=== PATIENT | male | born 1980 | race Caucasian/White ===

== ENCOUNTER 2020-08-23 15:50 | Emergency (ER) | payer BC ==
[2020-08-23 16:03] VITALS: PULSE 80
[2020-08-23] MEDS ORDERED: XYLOCAINE 2% HCL 20 ML MDV ONE (16:15)
--- NOTE | 2020-08-23 16:35 | ERPHSYRPT ---
- History of Present Illness Time Seen by Provider: 08/23/20 16:04 Source: patient Exam Limitations: no limitations Patient Subjective Stated Complaint: Pt states "We were cutting down a tree and I was hit in the hand with a chainsaw." Triage Nursing Assessment: Pt presented alert and oriented X 3, skin pwd pt ambulates with an upright steady gait, able to speak in clear full sentences. Pt has an approx 4 cm x 2 cm laceration noted to right hand. Physician History: 39 years old right-handed dominant male presented in the ER with a chief complaint of right hand laceration proximal to thumb after he was cutting a tree with a friend and accidentally hit the chainsaw. There was bleeding initially but stopped after applying pressure. This no difficulty movements of thumb, numbness tingling or weakness. Up-to-date with tetanus. Occurred: just prior to arrival Method of Injury: incised Quality: constant, sharpness Severity of Pain-Max: mild Severity of Pain-Current: mild Extremities Pain Location: thumb: right Modifying Factors: Improves With: immobilization, rest. Worsens With: movement Associated Symptoms: none Allergies/Adverse Reactions: No Known Drug Allergies Allergy (Verified 08/23/20 16:03) Home Medications: No Home Meds [No Home Meds] 1 ea UD 01/01/16 [History] Hx Tetanus, Diphtheria Vaccination/Date Given: Yes Hx Influenza Vaccination/Date Given: Yes Hx Pneumococcal Vaccination/Date Given: No Immunizations Up to Date: Yes Travel Risk - International Travel Have you traveled outside of the country in past 3 weeks: No - Coronavirus Screening Are you exhibiting any of the following symptoms?: No Close contact with a COVID-19 positive Pt in past 14-21 Days: No - Vaccine Status Have you recieved a Covid-19 vaccination: No - Review of Systems Constitutional: No Symptoms Ears, Nose, & Throat: No Symptoms Respiratory: No Symptoms Cardiac: No Symptoms Abdominal/Gastrointestinal: No Symptoms Musculoskeletal: Injury Skin: Skin Lesions Neurological: No Symptoms Psychological: No Symptoms Endocrine: No Symptoms - Past Medical History Pertinent Past Medical History: No Neurological History: No Pertinent History ENT History: No Pertinent History Cardiac History: No Pertinent History Respiratory History: No Pertinent History Endocrine Medical History: No Pertinent History Musculoskeletal History: No Pertinent History GI Medical History: No Pertinent History History: No Pertinent History Psycho-Social History: No Pertinent History - Past Surgical History Past Surgical History: No Neuro Surgical History: No Pertinent History Cardiac: No Pertinent History Respiratory: No Pertinent History Gastrointestinal: No Pertinent History Genitourinary: No Pertinent History Musculoskeletal: No Pertinent History Male Surgical History: No Pertinent History - Social History Smoking Status: Never smoker Exposure to second hand smoke: Yes Drug Use: none Patient Lives Alone: No - Nursing Vital Signs Nursing Vital Signs: Initial Vital Signs Temperature 98.0 F 08/23/20 15:58 Pulse Rate 80 08/23/20 15:58 Respiratory Rate 20 08/23/20 15:58 Blood Pressure 107/70 08/23/20 15:58 O2 Sat by Pulse Oximetry 97 08/23/20 15:58 Pain Scale Pain Intensity 4 - Physical Exam General Appearance: no apparent distress, alert Eyes, Ears, Nose, Throat Exam: normal ENT inspection Cardiovascular/Respiratory Exam: normal breath sounds, regular rate/rhythm Shoulder Exam: normal inspection, normal ROM Elbow/Forearm Exam: normal inspection, no evidence of injury, normal ROM Wrist Exam: normal inspection, non-tender, no evidence of injury, normal ROM Hand Exam: normal ROM, laceration (3.5 cm superficial laceration horizontally along first metacarpal bone proximal to metacarpophalangeal joint. Superficial does not involve muscles.), soft tissue tenderness, No limited ROM Neuro/Tendon Exam: normal sensation, normal motor functions, normal tendon functions Mental Status Exam: alert, oriented x 3 Skin Exam: normal color SpO2 Interpretation: normal SpO2: 97 O2 Delivery: Room Air Procedures - Laceration/Wound Repair Right Hand Time of Procedure: 16:24 Wound Location: Right Wound Length (cm): 3.5 Wound's Depth, Shape: superficial, linear Wound Explored: clean Irrigated: Yes Hibiclens Prep: Yes Anesthesia: 1% Lidocaine Volume Anesthetic (ccs): 3 Wound Repaired With: sutures Suture Size/Type: 4-0, prolene Number of Sutures: 6 Layer Closure?: No Ordered Tests: Medication Summary Discontinued Medications Generic Name Dose Route Start Last Admin Trade Name Freq PRN Reason Stop Dose Admin Lidocaine HCl Confirm 08/23/20 16:15 Xylocaine 2% Hcl 20 Ml Mdv Administered 08/23/20 16:16 Dose 1 ml .ROUTE .[facility] - Progress Progress Note: 08/23/20 16:34 Laceration is repaired. No involvement of muscle/tendons. Intact range of motion. Up-to-date with tetanus. Outpatient follow-up and suture removal in 10 days. Does not involve bone and do not think needs any imaging. Discussed signs symptoms of infection needing return to ER which he seems understanding. Counseled pt/family regarding: diagnosis, need for follow-up - Departure Departure Disposition: Home Clinical Impression: Hand laceration Qualifiers: Encounter type: initial encounter Foreign body presence: without foreign body Laterality: right Qualified Code(s): S61.411A - Laceration without foreign body of right hand, initial encounter Condition: Stable Critical Care Time: No Referrals: ATIF HENDRICKS [Primary Care Provider] - Follow Up with PCP/3 days Instructions: Laceration Repair With Stitches (DC), Laceration Infection (DC) Additional Instructions: Take Tylenol/ibuprofen as needed for pain. Keep it clean. Follow-up with primary care physician for reevaluation. Return to ER for increasing pain, swelling redness discharge/fever chills/difficulty movements of right thumb. Suture removal in 1014 days.
[2020-08-23 16:43] VITALS: BP 110/80
[2020-08-23 22:37] VITALS: O2SAT 97
== END 2020-08-23 16:46 | disposition home or self-care (01) ==
LOC: ED 15:50
DX: S61.411A Laceration without foreign body of right hand, initial encounter (principal); W22.8XXA Striking against or struck by other objects, initial encounter; Y93.89 Activity, other specified; Y92.89 Other specified places as the place of occurrence of the external cause
CPT/HCPCS: 12002; 99283